=== PATIENT | female | born 1960 | race Caucasian/White ===

== ENCOUNTER 2023-02-16 18:40 | Emergency (ER) | payer MEDICARE, BC | END 2023-02-16 19:55 | disposition home or self-care (01) | LOC: JD.ED 18:40 | DX: H11.32 Conjunctival hemorrhage, left eye (principal); Z88.8 Allergy status to other drugs, medicaments and biological substances; Z88.1 Allergy status to other antibiotic agents; Z91.040 Latex allergy status; Z88.0 Allergy status to penicillin; Z88.2 Allergy status to sulfonamides | CPT/HCPCS: 99282 ==